=== PATIENT | female | born 1970 | race Asian ===

== ENCOUNTER 2021-12-26 22:47 | Emergency (ER) | payer BC ==
[2021-12-26 23:34] LABS: Absolute Lymphocytes (CBC) 2.1 K/uL (0.7-4.9); Hematocrit 36.3 % (36.0-45.0); Lymphocytes % 25.5 % (15.3-44.8); MCV 93.8 fL (80-100); MPV 7.8 fL (7.6-11.3); RBC Red Blood Cell Count 3.87 M/uL (3.86-4.86)
[2021-12-26 23:46] LABS: Potassium 3.6 mmol/L (3.5-5.1)
--- NOTE | 2021-12-26 23:54 | EDPHYS ---
Physician Documentation [facility] Name: Daniela Chi Age: 51 yrs Sex: Female : 1970 Arrival Date: 12/26/2021 Time: 22:50 Bed 8 Private MD: ED Physician Pineda May HPI: 12/26 23:05 This 51 yrs old Female presents to ER via Ambulatory with complaints of Leg rn Swelling. 23:05 The patient presents with swelling. The complaints affect the left leg and right leg. rn Context: the patient is able to ambulate. Onset: The symptoms/episode began/occurred 3 day(s) ago. Modifying factors: The symptoms are alleviated by elevating leg, the symptoms are aggravated by weight bearing. Severity of symptoms: At their worst the symptoms were mild, in the emergency department the symptoms are unchanged. The patient has experienced similar episodes in the past. The patient has not recently seen a physician. Pt reports swelling to both legs over the last 3 days, no pain or injury. No fever. Reports recent UTI and treatment. No hx of dvt/PE. No CHF or renal problems. . 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 - Social history:: Smoking status: Patient denies any tobacco usage or history of. - Family history:: not pertinent. - Hospitalizations: : No recent hospitalization is reported. ROS: 23:05 Constitutional: Negative for fever, chills, and weight loss, Eyes: Negative for injury, rn pain, redness, and discharge, Neck: Negative for injury, pain, and swelling, Cardiovascular: Negative for chest pain, palpitations Respiratory: Negative for shortness of breath, cough, wheezing, and pleuritic chest pain, Abdomen/GI: Negative for abdominal pain, nausea, vomiting, diarrhea, and constipation, Back: Negative for injury and pain, MS/Extremity: + swelling to bilateral lower extremities Skin: Negative for injury, rash, and discoloration, Neuro: Negative for headache, weakness, numbness, tingling, and seizure. Exam: 23:05 Constitutional: This is a well developed, well nourished patient who is awake, alert, rn and in no acute distress. Cardiovascular: Regular rate and rhythm. No pulse deficits. Respiratory: Speaking full sentences, unlabored. No increased work of breathing, no retractions or nasal flaring. MS/ Extremity: Pulses equal, no cyanosis. Neurovascular intact. Full, normal range of motion. Equal circumference. 1+ pitting edema bilateral ankles and feet. No open wounds. No erythema or warmth. Neuro: Awake and alert, GCS 15. Motor strength 5/5 in all extremities. Sensory grossly intact. Cerebellar exam normal. Normal gait. Vital Signs: 22:53 BP 133 / 90; Pulse 83; Resp 18; Temp 98.2; Pulse Ox 97% on R/A; Weight 54.43 kg; Height tw5 4 ft. 11 in. (149.86 cm); Pain 4/10; 23:30 BP 120 / 87; Pulse 68; Resp 18; Pulse Ox 99% ; vc1 22:53 Body Mass Index 24.24 (54.43 kg, 149.86 cm) tw5 MDM: 22:56 Patient medically screened. rn 23:52 Differential diagnosis: dependent edema, renal failure, CHF, DVT. Data reviewed: vital rn signs, nurses notes, lab test result(s), radiologic studies, ultrasound, and as a result, I will discharge patient. Counseling: I had a detailed discussion with the patient and/or guardian regarding: the historical points, exam findings, and any diagnostic results supporting the discharge/admit diagnosis, lab results, radiology results, the need for outpatient follow up, to return to the emergency department if symptoms worsen or persist or if there are any questions or concerns that arise at home. Response to treatment: There is no appreciated change of the patient's symptoms at this time, and as a result, I will discharge patient. Special discussion: I discussed with the patient/guardian in detail that at this point there is no indication for admission to the hospital. It is understood, however, that if the symptoms persist or worsen the patient needs to return immediately for re-evaluation. Based on the history and exam findings, there is no indication for further emergent testing or inpatient evaluation. I discussed with the patient/guardian the need to see the primary care provider for further evaluation of the symptoms. 12/26 23:01 Order name: CBC with Diff; Complete Time: 23:51 rn 12/26 23: Order name: Basic Metabolic Panel; Complete Time: 23:51 rn 12/26 23: Order name: IV Start; Complete Time: 23:15 rn 12/26 23: Order name: BNP; Complete Time: 23:51 rn 12/26 23: Order name: Extrem Venous W Compression Felipe US rn Administered Medications: No medications were administered Disposition Summary: 12/26/21 23:53 Discharge Ordered Location: Home rn Problem: new rn Symptoms: are unchanged rn Condition: Stable rn Diagnosis - Edema, unspecified rn Followup: rn - With: Private Physician - When: As needed - Reason: Recheck today's complaints, Re-evaluation by your physician Discharge Instructions: - Discharge Summary Sheet rn - Peripheral Edema rn Forms: - Medication Reconciliation Form rn - Thank You Letter rn - Antibiotic furniture finisher - Prescription Opioid Use rn Prescriptions: - Lasix 40 mg Oral Tablet - take 1 tablet by ORAL route once daily for 3 days; 3 tablet; Refills: 0, rn Product Selection Permitted Signatures: Dispatcher [employer] Pineda Clark MD MD rn Wood, Tiffany tw5 Corrections: (The following items were deleted from the chart) 22:57 22:55 Allergies: No Known Allergies; tw: 22:55 Home Meds: None; tw
--- NOTE | 2021-12-26 23:54 | ER ---
Nurse's Notes [facility] Name: Daniela Chi Age: 51 yrs Sex: Female : 1970 Arrival Date: 12/26/2021 Time: 22:50 Bed 8 Private MD: Diagnosis: Edema, unspecified Presentation: 12/26 22:53 Chief complaint: Patient states: "I have been having swelling in my legs for about tw5 three days now.". Coronavirus screen: Vaccine status: Patient reports receiving the 2nd dose of the covid vaccine. [employer]. Ebola Screen: Patient negative for fever greater than or equal to 101.5 degrees Fahrenheit, and additional compatible Ebola Virus Disease symptoms Patient denies exposure to infectious person. Patient denies travel to an Ebola-affected area in the 21 days before illness onset. Initial Sepsis Screen: Does the patient meet any 2 criteria? No. Patient's initial sepsis screen is negative. Does the patient have a suspected source of infection? No. Patient's initial sepsis screen is negative. Risk Assessment: Do you want to hurt yourself or someone else? Patient reports no desire to harm self or others. Onset of symptoms was December 24, 2021. 22:53 Method Of Arrival: Ambulatory tw5 22:53 Acuity: SHAMEKA 3 tw5 Triage Assessment: 22:57 General: Appears in no apparent distress. Behavior is calm, cooperative, appropriate tw5 for age. Pain: Complains of pain in right leg and left leg Pain currently is 3 out of 10 on a pain scale. 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 - Social history:: Smoking status: Patient denies any tobacco usage or history of. - Family history:: not pertinent. - Hospitalizations: : No recent hospitalization is reported. Screenin:17 Abuse screen: Denies threats or abuse. Nutritional screening: No deficits noted. kl Tuberculosis screening: No symptoms or risk factors identified. Fall Risk None identified. Assessment: 23:15 General: Appears in no apparent distress. Behavior is calm, cooperative, anxious. Pain: kl Denies pain. Neuro: No deficits noted. Alfaro Agitation-Sedation Scale (RASS): 0 - Alert and Calm Level of Consciousness is awake, alert, obeys commands, Oriented to person, place, time, situation. Cardiovascular: No deficits noted. Heart tones S1 S2. Cardiovascular: Capillary refill < 3 seconds Patient's skin is warm and dry. Respiratory: No deficits noted. Airway is patent Trachea midline Respiratory effort is even, unlabored, Respiratory pattern is regular, symmetrical. GI: No deficits noted. No signs and/or symptoms were reported involving the gastrointestinal system. : No deficits noted. No signs and/or symptoms were reported regarding the genitourinary system. EENT: No deficits noted. No signs and/or symptoms were reported regarding the EENT system. Musculoskeletal: Circulation, motion, and sensation intact. Capillary refill < 3 seconds, Range of motion: intact in all extremities, Swelling present in left leg and right leg. Vital Signs: 22:53 BP 133 / 90; Pulse 83; Resp 18; Temp 98.2; Pulse Ox 97% on R/A; Weight 54.43 kg; Height tw5 4 ft. 11 in. (149.86 cm); Pain 4/10; 23:30 BP 120 / 87; Pulse 68; Resp 18; Pulse Ox 99% ; vc1 22:53 Body Mass Index 24.24 (54.43 kg, 149.86 cm) tw5 ED Course: 22:50 Patient arrived in ED. ja2 22:55 Triage completed. tw5 22:56 Pineda May MD is Attending Physician. rn 22:57 Arm band placed on. tw5 23:00 Patient has correct armband on for positive identification. Bed in low position. vc1 23:15 BNP Sent. kl 23:15 Basic Metabolic Panel Sent. kl 23:15 CBC with Diff Sent. kl 23:15 Inserted saline lock: 20 gauge in right antecubital area, using aseptic technique. kl 23:45 Extrem Venous W Compression Felipe US In Process Unspecified. EDMS 12/27 00:11 No provider procedures requiring assistance completed. IV discontinued, intact, vc1 bleeding controlled, No redness/swelling at site. Pressure dressing applied. Administered Medications: No medications were administered Medication: 00:12 VIS not applicable for this client. vc1 Outcome: 12/26 23:53 Discharge ordered by MD. powers 12/27 00:11 Discharged to home ambulatory, with significant other. vc1 Condition: good Discharge instructions given to patient, Instructed on discharge instructions, follow up and referral plans. medication usage, Demonstrated understanding of instructions, follow-up care, medications, Prescriptions given X 1. 00:12 Patient left the ED. vc1 Signatures: Dispatcher [employer] [facility] Yandy Rivera RN RN kl Nieto, Roman, MD MD rn Alexander, Jessica ja2 Wood, Tiffany [facility] Seema Massey RN RN vc1 Corrections: (The following items were deleted from the chart) 12/26 22:57 22:55 Allergies: No Known Allergies; 22:57 22:55 Home Meds: None;
[2021-12-27 01:30] VITALS: TEMP 98.2
[2021-12-27 01:40] VITALS: BP 120/87; O2SAT 99
--- NOTE | 2021-12-27 12:07 | RAD REPORT ---
EXAM DESCRIPTION: Extrem Venous W Compress Felipe CLINICAL HISTORY: 51 years Female SWELLING COMPARISON: None TECHNIQUE: Spectral analysis and color/grayscale sonographic images of both legs were obtained utili zing a high-frequency linear array transducer supplemented with color Doppler, compression and augmen tation techniques. FINDINGS: Right leg veins: Common femoral: normal Greater saphenous: normal Superficial femoral: normal Popliteal: normal Calf Veins: normal Left leg veins: Common femoral: normal Greater saphenous: normal Superficial femoral: normal Popliteal: normal Calf Veins: normal IMPRESSION: 1. No sonographic evidence for lower extremity deep venous thrombosis in either leg. Electronically signed by: Charla Villareal MD 12/27/2021 1:09 AM CDT Due to temporary technical issues with the PACS/Fluency reporting system, reports are being signed by the in house radiologists without review as a courtesy to insure prompt reporting. The interpreting radiologist is fully responsible for the content of the report.
== END 2021-12-27 00:12 | disposition home or self-care (01) ==
LOC: ER 22:47
DX: R60.9 Edema, unspecified (principal); F20.9 Schizophrenia, unspecified; Z88.8 Allergy status to other drugs, medicaments and biological substances
CPT/HCPCS: 36415; 80048; 83880; 85025; 93970; 99284